=== PATIENT | male | born 1985 | race Caucasian/White ===

== ENCOUNTER 2017-10-11 11:57 | Emergency (ER) | payer OTHER ==
[~2017-10-11] VITALS: Ht 182.9 cm; Wt 100.2 kg
[~2017-10-11 11:57] MED LIST: AFRIN,GENASAL D15 ML BOTH NARES; ANUSOL HC,ANUCO25 MG PR; BACTRIM,SEPT1 TABLET PO; BENADRYL25 MG PO; HYDROCORTISON28.4 GM TP; KEFLEX500 MG PO; MOTRIN800 MG PO; MUCUS RELIEF600 MG PO; PRAMOSONE 1%28.4 G1 TP; PREDNISONE20 MG PO; PROAIR HFA8.5 GM IH; PROCORT 1.85%-160 GM PR; TESSALON PERLE100 MG PO; ZITHROMAX250 MG PO
[2017-10-11 12:00] VITALS: BP 169/115
== END 2017-10-11 14:13 | disposition home or self-care (01) ==
LOC: EME 11:57
DX: S63.502A Unspecified sprain of left wrist, initial encounter (principal); X50.0XXA Overexertion from strenuous movement or load, initial encounter; Y93.89 Activity, other specified; Y99.0 Civilian activity done for income or pay
CPT/HCPCS: 73110; 73130; 99281; 99283